=== PATIENT | male | born 1970 | race Caucasian/White ===

== ENCOUNTER 2020-10-27 15:31 | Emergency (ER) | payer BC, SELFPAY ==
[2020-10-27] VITALS (21 sets, daily range): BP systolic 66–117; BP diastolic 30–96; PULSE 61–83; RESP 12–20; TEMP 36.4; O2SAT 96–100; BMI 39.9
--- NOTE | ~2020-10-27 | CT_ITS ---
EXAMINATION: CT HEAD WITHOUT CONTRAST CLINICAL INFORMATION: Syncope with fall. Rule out fracture, bleed. COMPARISON: None TECHNIQUE: Contiguous axial imaging was performed from the skull base to vertex without intravenous administration of contrast. This CT examination was performed using dose optimization techniques as appropriate, variously including the following: *Automated exposure control *Adjustment of mA and/or kV according to patient size (this includes techniques or standardized protocols for targeted exams where dose is matched to indication/reason for exam; i.e. extremities or head) *Use of iterative reconstruction technique DLP: 881 mGy-cm FINDINGS: There is no evidence of acute intracranial hemorrhage or territorial infarction. No abnormal mass effect or midline shift is seen. Vasquez to white matter differentiation is well preserved. No extra-axial fluid collections are identified. The ventricles are normal in size. There is no abnormal attenuation within the brain parenchyma. The osseous structures and soft tissues are normal. The mastoid air cells and visualized portions of the paranasal sinuses are well aerated. CT/CT head/brain wo con IMPRESSION: No acute intracranial pathology.
--- NOTE | ~2020-10-27 | XR_ITS ---
EXAMINATION: XR PORTABLE CHEST CLINICAL INFORMATION: Chest pain, syncope COMPARISON: None. TECHNIQUE: AP portable supine view of the chest FINDINGS: Lungs are clear. No consolidation, pneumothorax, or pleural effusion. Cardiac and mediastinal contours are normal. Pulmonary vasculature is unremarkable. Osseous structures are unremarkable. XR/XR chest 1V IMPRESSION: No acute cardiopulmonary findings
--- NOTE | ~2020-10-27 | CT_ITS ---
EXAMINATION: CT ANGIOGRAM CHEST CLINICAL INFORMATION: back pain, hypotension, rule out aortic dissection COMPARISON: None TECHNIQUE: Multiple axial images were obtained through the chest after the administration of 70 mL of Omnipaque 350 intravenous contrast. Extensive vascular post-processing including two-dimensional and three-dimensional reformatted images were created and reviewed on an independent workstation. This CT examination was performed using dose optimization techniques as appropriate, variously including the following: *Automated exposure control *Adjustment of mA and/or kV according to patient size (this includes techniques or standardized protocols for targeted exams where dose is matched to indication/reason for exam; i.e. extremities or head) *Use of iterative reconstruction technique DLP: 562 mGy-cm VASCULAR FINDINGS: The thoracic aorta appears normal without dissection or aneurysm. There is motion artifact at the root of the aorta producing some double density secondary to lack of cardiac gating. Three-vessel branching pattern of the aortic arch is seen with widely patent great vessels. A small portion of the abdominal aorta is seen and appears unremarkable. The celiac SMA and bilateral renal arteries are patent. Although not carried out for evaluation of the pulmonary arteries and pulmonary veins appear unremarkable. No large central pulmonary emboli are seen. NONVASCULAR FINDINGS: The lungs are clear without infiltrates, effusions or lung masses. No mediastinal or hilar lymphadenopathy is seen. The chest wall and axilla appear unremarkable. Visualized upper abdomen is unremarkable. Degenerative changes are present in the spine. No bony destructive lesions seen. CT/CT angio chest IMPRESSION: No aortic aneurysm or dissection is seen. Evaluation of the ascending aorta is somewhat limited by motion and lack of cardiac gating.
--- NOTE | ~2020-10-27 | US_ITS ---
EXAMINATION: US RETROPERITONEAL LIMITED (RENAL ONLY) CLINICAL INFORMATION: Onset of renal failure. Concern for obstruction.. COMPARISON: None TECHNIQUE: Grayscale ultrasound and color Doppler exam of kidneys. FINDINGS: RIGHT KIDNEY: 12.6 x 5.8 x 5.8 cm (SAG x AP x TRV). The kidney is normal in size, contour, and echogenicity. Renal cortical thickness is normal. No calculi or focal parenchymal lesions. No hydronephrosis. LEFT KIDNEY: 11.9 x 6.3 x 5.5 cm (SAG x AP x TRV). The kidney is normal in size, contour, and echogenicity. Renal cortical thickness is normal. No calculi or focal parenchymal lesions. No hydronephrosis. US/US renal BI IMPRESSION: Normal ultrasound of the kidneys..
--- NOTE | 2020-10-27 16:30 | PC.NURSE ---
Pt is very pale, but alert and oriented. Pt passed out x 2 at doctors office [employer]. Pt denies any pain. pt states he just does not feel well. BP low at 61/31 with recheck 66/40. Doctor is currently at bedside. IV started in right ac with a 20 gauge. NS bolus started on a pressure bag immediately per doctors orders.
--- NOTE | 2020-10-27 16:35 | ECG_ITS ---
Test Reason : LOW BP Blood Pressure : / mmHG Vent. Rate : 070 BPM Atrial Rate : 070 BPM P-R Int : 206 ms QRS Dur : 092 ms QT Int : 468 ms P-R-T Axes : 046 045 058 degrees QTc Int : 505 ms Normal sinus rhythm Prolonged QT Abnormal ECG No previous ECGs available Referred By: Robinson Hartman Electronically Signed By:Robert Hunter
[2020-10-27] MEDS: 0.9 % Sodium Chloride 1,000 ML 999 ML IV ×3 (16:40→17:30)
--- NOTE | 2020-10-27 16:45 | PC.NURSE ---
Second iv established in anterior lower forearm near wrist with a 22 gauge insyte. blood drawn and sent to the lab. Second liter of normal saline started iv with pressure bag.
--- NOTE | 2020-10-27 16:55 | ED_ITS ---
HPI - General Adult General Chief complaint: Dizziness Stated complaint: abnormal ekg Time Seen by Provider: 10/27/20 16:18 Source: patient Mode of arrival: ambulatory Limitations: no limitations History of Present Illness HPI narrative: 50-year-old male who was sent to the emergency department by his PCP for evaluation of syncopal episodes and low blood pressure. The patient states that on Monday (5 days prior to evaluation) was work on his pool when he developed a burning sensation between his shoulder blades. He states he felt lightheaded and dizzy when into his workshop he states his vision then went lee and he passed out. He states that he crashed to the floor through a rocking chair breaking the chair. He is uncertain how long he was unconscious for. On Monday (4 days prior to evaluation) he was at a wedding. He states that he walked to the tailgate of his truck and sat down. He states that he developed a burning sensation between her shoulder blades again, his vision went lee and he slumped over and passed out. His , Toyin witness this syncopal episode and states that he was unresponsive for 5-10 seconds. He then appeared to be confused after the episode of unresponsiveness. This resolved after several minutes. The patient states that he has had several other episodes of a burning sensation between his shoulder blades, he states he feels like his shoulders are on fire, he has no chest pain, neck or jaw pain associated with this symptom. He states that he often feels lightheaded when he gets the symptom. Patient states that on Monday (3 days prior to evaluation (he had 5 episodes of brown diarrheal stool with a small amount of blood in the diarrhea. The patient does have a history of alcohol use disorder and states that he was drinking 5 beers per day but stopped approximately 3 weeks ago. He states he has also been intentionally dieting and has lost 30 lb over 1 month. The patient states that since Monday however he has had very little food to eat since he lost his appetite .The patient was seen by his PCP today, Dr. Edna Clinton and was referred to the emergency department for evaluation of hypotension and quiet heart sounds according to his . The patient states that he has a liver issue that they are trying to diagnose. He states that he has high iron in his blood and had a normal ultrasound of his liver. He does have a history of hypertension has been compliant with his medications, he takes lisinopril and hydrochlorothiazide and there has not been any changes in his medications. He also has a history of gout The patient has been fully vaccinated with the Moderna COVID-19vaccine with his last dose on 07/04/2020. He also had COVID-19 infection January 2020 Related Data Home Medications Medication Instructions Recorded Confirmed escitalopram oxalate 1 tab PO DAILY 10/27/20 10/27/20 hydrochlorothiazide 1 tab PO DAILY 10/27/20 10/27/20 lorazepam 1 tab PO Q8H PRN 10/27/20 10/27/20 nitroglycerin 1 tab SUBLINGUAL Q5M PRN 10/27/20 10/27/20 Allergies Allergy/AdvReac Type Severity Reaction Status Date / Time No Known Allergies Allergy Verified 10/27/20 16:35 Review of Systems Review of Systems: Yes all other systems are reviewed and are negative Neurologic: Reports Abnormal speech present [facility] Past Medical History [facility] Narrative: Past medical history: Gout, hypertension, being evaluated for possible hemochromatosis (high iron in his blood). Past surgical history: Patient states he has had an operation on his hand and his knee but no other surgeries. Social history: Patient is . His Toyin is here in the emergency department with him. The patient denies tobacco use. He denies drug use. He was drinking 5 Reyes Light beers per day but states he has had no alcohol to drink for 3 weeks. Medical History (Updated 10/28/20 @ 02:08 by Robinson Hartman MD) Arthritis Hypertension Social History Social History Alcohol intake: former Patient Tobacco Use Status: Never used Tobacco Use of substances other than those prescribed or required for medical reasons: No Advance Directives: No Advance Directives Information Provided: No Physical Exam Vital Signs: Vital Signs: Last Vital Signs Temp 97.6 F 10/27/20 16:08 Pulse 71 10/28/20 01:59 Resp 16 10/28/20 01:59 BP 99/60 10/28/20 01:59 Pulse Ox 100 10/28/20 01:59 Body Mass Index 39.9 Const: Other: Very pleasant and cooperative male, joking around with the staff, awake and alert, he does not appear to be in distress. HENMT: Head: Yes normal to inspection, Yes normocephalic and Yes atraumatic Ears: external ears normal General nose exam: Normal external nose present Face and sinus: Yes normal facial exam Mouth: Normal oral and palatal mucosa present Throat: Yes posterior oropharynx normal Eyes: Periorbital: periorbital findings normal Eyelids: Yes eyelids normal Conjunctivae: conjunctivae normal Sclerae: sclerae normal Corneas: corneas normal Pupils: Equal, round and reactive pupils present Direct Ophthalmoscopy: normal light reflex Neck: Neck: Yes full ROM, Yes no lymphadenopathy, Yes no meningeal signs, Yes trachea midline and Yes supple Chest: Chest palpation & inspection: normal inspection of the chest and normal palpation of entire chest wall Resp: Effort & Inspection: normal respiratory effort and able to speak in complete sentences Auscultation: clear to auscultation bilaterally Cardio: Rate: regular rate Rhythm: regular rhythm Heart sounds: S1 normal heart sound present, S2 normal heart sound present and no murmurs GI: Inspection: Yes normal to inspection Palpation (GI): Soft to palpation, nontender, no guarding and not rigid Auscultation: normal bowel sounds Rectal Exam - Male: Yes visual inspection normal, Yes normal sphincter tone, No External hemorrhoid(s) present and Yes other (No stool in the rectum, gel on the glove was strongly Hemoccult positive) : General: Yes no CVA tenderness Back/Spine/Pelvis: Back: no CVA tenderness Cervical Spine: normal cervical lordosis Thoracic/Lumbar Spine: thoracic and lumbar spine normal to inspe ction Skin: Lesions: no lesions Rashes: no rashes Wounds: no wounds Neuro: General: no meningeal signs Cranial nerves: Yes Equal, round and reactive pupils present Cognition (Neuro): normal cognition Speech: Abnormal speech present Motor exam (neuro): 5/5 motor strength present throughout Extrem: General: Yes normal to inspection and Yes full ROM Psych: Appearance: well kempt Mental Status: mental status grossly normal Speech and movement: Normal speech and movement present Affect: normal affect Attitude: cooperative Thought process: Normal thought process present Thought content: Normal thought content present Course Course Course Narrative: 50-year-old male who presents emergency department for evaluation of 2 syncopal episodes and hypotension. The patient was hypotensive here in the emergency department, he is afebrile and I do not think that he has sepsis is the cause of his hypotension. Physical examination was unremarkable except for no stool in the rectum and Hemoccult-positive gel that was on the glove. I am more concerned that there may be a cardiac cause or that this p atient may be severely anemic from GI blood loss. The patient was ordered to get normal saline IV x2 L on pressure bags to see if this improves his blood pressure. I did order a CBC, CMP, troponin, type and screen, CK, D-dimer, TSH, COVID-19, alcohol, lipase, PT/INR, PTT and iron profile. 0: There was a delay in this patient's care since it was very difficult to get blood from the patient. The patient has received 3 L of normal saline and 1 L of lactated Ringer's with only some improvement in his blood pressure. most recent blood pressure readings were 87/42 and 107/70. Patient's laboratory evaluation did reveal acute kidney injury with a BUN of 103 and a creatinine of 6.6. Patient was not anemic with an H&H of 13.5 and 37.4. Patient's high sensitive troponin was detectable but not elevated at 22.2. the patient's lactic acid was normal. The patient was experiencing back pain and is CT angiogram revealed no dissection and no evidence for pulmonary embolism. CT scan of the brain revealed no intracranial pathology. Given the patient's persistent hypotension despite fluid resuscitation , I will discuss the patient's presentation with the student services counselor. 4 : I did discuss the patient's presentation with Dr. Price and he did accept the patient into the ICU. I will repeat the patient's high sensitivity troponin, CBC and CMP at 11:20 p.m. 2342 : The the patient was seen by the nurse practitioner in the intensive care unit however we do not have an intensive care unit bed at this time. The patient's last 3 systolic blood pressures were greater than 90 and the patient appears to be stable. the patient has received normal saline times 3 L, lactated Ringer's x1 L. I ordered a 5th L of lactated Ringer's wide open. We will monitor the patient for at least 1 hour to see if his systolic blood pressures remain above 90. 0140: The patient is completed 3 L of normal saline and 2 L of lactated Ringer and the patient still remains hypertensive with a blood pressure of 73/28. At this time we do not have any intensive care unit beds therefore I will attempt distress for the patient. the patient's for into did come back elevated at 995 with a normal LDH. COVID-19 test was negative. Bilateral renal ultrasound revealed no obstructive process. 0206: I did present the patient to the intensive care unit fellow at [facility] and she did except the patient is a ED to ICU transfer. The patient's recent bladder scan did reveal 250 cc fluid in his bladder. the patient be transferred by ALS ambulance seen is the ICU bed is available. Medical Decision Making Lab Data Result diagrams: 10/27/20 23:20 10/27/20 23:20 Labs: Lab Results 10/27/20 10/27/20 10/27/20 Range/Units 16:51 16:53 19:07 WBC 9.8 (4.8-10.8) X10*3/uL RBC 3.86 L (4.60-5.80) X10*6/uL Hgb 13.5 L (14.0-18.0) g/dl Hct 37.4 L (42-52) % MCV 96.9 (80-98) fL MCH 35.0 H (27.0-33.0) pg MCHC 36.1 H (31.0-36.0) g/dl RDW 12.9 (11.0-16.0) % Plt Count 180 (160-400) X10*3/uL MPV 10.0 (9.4-12.4) fL Immature Gran % (Auto) 0.6 H (0.0-0.4) % Neut % (Auto) 76.5 H (45-73) % Lymph % (Auto) 17.4 L (20-40) % Dade % (Auto) 4.7 (2-11) % Eos % (Auto) 0.4 (0-4) % Baso % (Auto) 0.4 (0-2) % Lymph # (Auto) 1.7 (1.2-4.9) X10*3/uL Dade # (Auto) 0.5 (0.1-1.2) X10*3/uL Eos # (Auto) 0.0 (0.0-0.4) X10*3/uL Baso # (Auto) 0.0 (0.0-0.2) X10*3/uL Abs Immat Gran (auto) 0.06 H (0.00-0.03) X10*3/uL Absolute Neuts (auto) 7.5 (2.0-8.3) X10*3/uL Absolute Nucleated RBC 0.000 (0.0-0.012) X10*3/uL Nucleated RBC % (auto) 0.0 (0.0-0.2) /100WBC PT (9.9-13.0) SEC INR (0.9-1.1) APTT (24.1-38.0) SEC D-Dimer NG/ML Sodium (135-145) mmol/L Potassium (3.3-5.1) mmol/L Chloride (96-108) mmol/L Carbon Dioxide (22-29) mmol/L Anion Gap (12-20) BUN (9-16) mg/dL Creatinine (0.5-1.4) mg/dL Estim Creat Clear Calc Estimated GFR Random Glucose (60-115) mg/dL Lactic Acid (0.5-2.0) mmol/L Calcium (8.4-10.2) mg/dL Total Bilirubin (0.0-1.0) mg/dL AST (5-37) U/L ALT (0-40) U/L Alkaline Phosphatase (39-117) U/L Troponin I High Sens (<3.5-35.0) ng/L Total Protein (6.5-8.0) g/dL Albumin (3.5-5.0) g/dL Ethyl Alcohol mg/dL COVID-19 ([facility]) Negative (Negative) COVID-19 Clin Com See Note Blood Type A Positive Antibody Screen NEGATIVE 10/27/20 10/27/20 10/27/20 Range/Units 20:24 20:35 20:35 WBC (4.8-10.8) X10*3/uL RBC (4.60-5.80) X10*6/uL Hgb (14.0-18.0) g/dl Hct (42-52) % MCV (80-98) fL MCH (27.0-33.0) pg MCHC (31.0-36.0) g/dl RDW (11.0-16.0) % Plt Count (160-400) X10*3/uL MPV (9.4-12.4) fL Immature Gran % (Auto) (0.0-0.4) % Neut % (Auto) (45-73) % Lymph % (Auto) (20-40) % Dade % (Auto) (2-11) % Eos % (Auto) (0-4) % Baso % (Auto) (0-2) % Lymph # (Auto) (1.2-4.9) X10*3/uL Dade # (Auto) (0.1-1.2) X10*3/uL Eos # (Auto) (0.0-0.4) X10*3/uL Baso # (Auto) (0.0-0.2) X10*3/uL Abs Immat Gran (auto) (0.00-0.03) X10*3/uL Absolute Neuts (auto) (2.0-8.3) X10*3/uL Absolute Nucleated RBC (0.0-0.012) X10*3/uL Nucleated RBC % (auto) (0.0-0.2) /100WBC PT 11.6 (9.9-13.0) SEC INR 1.0 (0.9-1.1) APTT 36.7 (24.1-38.0) SEC D-Dimer < 200 NG/ML Sodium 131 L (135-145) mmol/L Potassium 3.5 (3.3-5.1) mmol/L Chloride 89 L (96-108) mmol/L Carbon Dioxide 25 (22-29) mmol/L Anion Gap 21 H (12-20) BUN 103 H* (9-16) mg/dL Creatinine 6.64 H* (0.5-1.4) mg/dL Estim Creat Clear Calc 17.5 Estimated GFR 9 Random Glucose 81 (60-115) mg/dL Lactic Acid 1.4 (0.5-2.0) mmol/L Calcium 8.4 (8.4-10.2) mg/dL Total Bilirubin 0.7 (0.0-1.0) mg/dL AST 58 H (5-37) U/L ALT 36 (0-40) U/L Alkaline Phosphatase 42 (39-117) U/L Troponin I High Sens (<3.5-35.0) ng/L Total Protein 5.5 L (6.5-8.0) g/dL Albumin 3.2 L (3.5-5.0) g/dL Ethyl Alcohol mg/dL COVID-19 ([facility]) (Negative) COVID-19 [facility] Blood Type Antibody Screen 10/27/20 10/27/20 Range/Units 20:35 20:35 WBC (4.8-10.8) X10*3/uL RBC (4.60-5.80) X10*6/uL Hgb (14.0-18.0) g/dl Hct (42-52) % MCV (80-98) fL MCH (27.0-33.0) pg MCHC (31.0-36.0) g/dl RDW (11.0-16.0) % Plt Count (160-400) X10*3/uL MPV (9.4-12.4) fL Immature Gran % (Auto) (0.0-0.4) % Neut % (Auto) (45-73) % Lymph % (Auto) (20-40) % Dade % (Auto) (2-11) % Eos % (Auto) (0-4) % Baso % (Auto) (0-2) % Lymph # (Auto) (1.2-4.9) X10*3/uL Dade # (Auto) (0.1-1.2) X10*3/uL Eos # (Auto) (0.0-0.4) X10*3/uL Baso # (Auto) (0.0-0.2) X10*3/uL Abs Immat Gran (auto) (0.00-0.03) X10*3/uL Absolute Neuts (auto) (2.0-8.3) X10*3/uL Absolute Nucleated RBC (0.0-0.012) X10*3/uL Nucleated RBC % (auto) (0.0-0.2) /100WBC PT (9.9-13.0) SEC INR (0.9-1.1) APTT (24.1-38.0) SEC D-Dimer NG/ML Sodium (135-145) mmol/L Potassium (3.3-5.1) mmol/L Chloride (96-108) mmol/L Carbon Dioxide (22-29) mmol/L Anion Gap (12-20) BUN (9-16) mg/dL Creatinine (0.5-1.4) mg/dL Estim Creat Clear Calc Estimated GFR Random Glucose (60-115) mg/dL Lactic Acid (0.5-2.0) mmol/L Calcium (8.4-10.2) mg/dL Total Bilirubin (0.0-1.0) mg/dL AST (5-37) U/L ALT (0-40) U/L Alkaline Phosphatase (39-117) U/L Troponin I High Sens 22.2 (<3.5-35.0) ng/L Total Protein (6.5-8.0) g/dL Albumin (3.5-5.0) g/dL Ethyl Alcohol < 10 mg/dL COVID-19 ([facility]) (Negative) COVID-19 Clin Com Blood Type Antibody Screen ECG Data Attestation: I personally reviewed and interpreted this ECG as follows: Interpretation: Sinus rhythm with a rate of 70, first-degree AV block with NC interval of 206 milliseconds, normal QRS duration but prolonged QTC interval of 505 milliseconds, inverted T-waves in lead V1 and V3, no significant ST segment elevation or depression, no PACs, no PVCs, no old EKG for comparison, no evidence for STEMI. Critical Care Time Critical Care Time Critical Care Time: Yes Total Critical Care Time: 80 Attestation: Critical Care: The patient was critically ill with a high probability of imminent or life threatening deterioration. I spent greater than 30 minutes of discontinuous time evaluating the patient,delivering critical care at the bedside, discussing and evaluating pertinent data with consultants. Critical care time does not include time spent performing separately billable procedures or teaching. Total time spent performing critical care was 80 erich leonel. Discharge Plan Discharge Clinical Impression: Acute kidney injury, Acute dehydration, Syncope, Acute hypotension Patient Disposition: [facility] Transfer Details: [facility], ED to intensive care unit transfer
[2020-10-27 17:00] LABS: MANUAL DIFF FLAG NO
[2020-10-27 17:03] LABS: Basophils Percent Auto 0.4 % (0-2); Eosinophils Percent Auto 0.4 % (0-4); Hematocrit 37.4 % (42-52); Hemoglobin 13.5 g/dl (14.0-18.0); Imm Gran Abs Auto 0.06 X10*3/uL (0.00-0.03); Imm Gran Pct Auto 0.6 % (0.0-0.4); Lymphocytes Absolute Auto 1.7 X10*3/uL (1.2-4.9); Lymphocytes Percent Auto 17.4 % (20-40); Mean Corpuscular HGB Conc 36.1 g/dl (31.0-36.0); Mean Corpuscular Volume 96.9 fL (80-98); Monocytes Absolute Auto 0.5 X10*3/uL (0.1-1.2); Monocytes Percent Auto 4.7 % (2-11); Neutrophils Absolute Auto 7.5 X10*3/uL (2.0-8.3); Neutrophils Percent Auto 76.5 % (45-73); Platelet Count 180 X10*3/uL (160-400); Red Blood Count 3.86 X10*6/uL (4.60-5.80); Red Cell Distribution Width 12.9 % (11.0-16.0); White Blood Count 9.8 X10*3/uL (4.8-10.8)
--- NOTE | 2020-10-27 17:20 | PC.NURSE ---
Patient face has more color to it, cheeks are raina. Pt states he is feeling better
[2020-10-27 18:23] LABS: COVID-19 Test Negative (Negative)
--- NOTE | 2020-10-27 18:54 | PC.NURSE ---
Phlebotomy as bedside for blood work as ED staff has been unable to draw patient.
--- NOTE | 2020-10-27 19:50 | PHA.MEDREC ---
Pharmacy Consult ? Medication Reconciliation Pharmacy has completed the medication reconciliation. Pt states that pcp told him to stop nifedpine, and meloxicam
[2020-10-27] MEDS: Lactated Ringers 1,000 ML 1000 ML IV (19:57)
--- NOTE | 2020-10-27 20:06 | PC.NURSE ---
Pt requesting to use the bathroom, assisted onto the commode but unable to void on the commode. Pt requesting to use the bathroom, assisted into a wheelchair and to the bathroom by endoscopy specialty technician. Pt denies any weakness, SOB, nausea, fatigue with exertion. Pt returned to bed and was resting in POC. Pt reporting some lower back pain. Pt found to be hypotensive by this RN @ 70/30. ED MD notified. Verbal order for LR bolus, 1 li, wide open. LR infusing. Pt remains CAOx4, speaking full sentences, despite hypotension. Plan for chest Ct, awaiting lab results. Continue to monitor.
[2020-10-27] MEDS: Lactated Ringers 1,000 ML 125 ML IVCONT (20:12)
--- NOTE | 2020-10-27 20:25 | PC.NURSE ---
coordinator of health services calling lab for pending CMP. Per lab, CMP not obtained by phlebotomy with other bloodwork @ 1900. This RN obtaining CMP and sending for analysis.
--- NOTE | 2020-10-27 20:36 | PC.NURSE ---
Repeat CMP obtained and sent by this RN. This RN caling lab due to mutiple pending lab work noted in orders but not showing in phleb status board. Lab to fix problem and phleb to redraw pt. Phleb at bedside at this time.
[2020-10-27 20:57] LABS: Prothrombin Time 11.6 SEC (9.9-13.0)
[2020-10-27 20:59] LABS: Partial Thromboplastin Time 36.7 SEC (24.1-38.0)
[2020-10-27 21:01] LABS: D Dimer < 200 NG/ML
[2020-10-27 21:02] LABS: Alanine Aminotransferase 36 U/L (0-40); Albumin Level 3.2 g/dL (3.5-5.0); Alkaline Phosphatase 42 U/L (39-117); Anion Gap 21 (12-20); Aspartate Amino Transferase 58 U/L (5-37); Bilirubin Total 0.7 mg/dL (0.0-1.0); Blood Urea Nitrogen 103 mg/dL (9-16); Calcium 8.4 mg/dL (8.4-10.2); Carbon Dioxide 25 mmol/L (22-29); Chloride 89 mmol/L (96-108); Creatinine Clr Calc Pharmacy 17.5; Estimated Glomerular Filt Rate 9; Glucose Random 81 mg/dL (60-115); Potassium 3.5 mmol/L (3.3-5.1); Sodium 131 mmol/L (135-145); Total Protein 5.5 g/dL (6.5-8.0)
[2020-10-27] MEDS: iohexoL 350 MG/ML 100 ML INFUS..BTL IV (21:02)
--- NOTE | 2020-10-27 21:02 | PC.NURSE ---
Pt returns from CT on hospital bed at this time.
[2020-10-27 21:06] LABS: Lactic Acid 1.4 mmol/L (0.5-2.0)
[2020-10-27 21:09] LABS: Ethanol < 10 mg/dL
[2020-10-27 21:16] LABS: Troponin-I High Sensitivity 22.2 ng/L (<3.5-35.0)
[2020-10-27 21:17] LABS: Lipase 70 U/L (8-78)
[2020-10-27 21:22] LABS: TSH reflex Free T4 0.91 uIU/mL (0.32-4.0)
[2020-10-27 21:36] LABS: Iron 56 mcg/dL (45-160); Percent Iron Saturation 21 % (15-50); Total Iron Binding Capacity 268 mcg/dL (228-428); Unsaturated Iron Binding 212 ug/dL
--- NOTE | 2020-10-27 21:38 | PC.NURSE ---
U/S at bedside. Pt aware of pending UA. Pt to attempt urine sample when finished with U/S.
[2020-10-27 22:20] LABS: Lactate Dehydrogenase 143 U/L (118-273)
[2020-10-27 22:30] LABS: Glucose Urine UA NEG (NEG); Leukocyte Esterase Urine NEG (NEG); Nitrite Urine NEG (NEG); Urine Blood TRACE (NEG); Urine Ketones NEG (NEG); Urine Protein TRACE MG/DL (NEG-TRACE)
[2020-10-27 22:31] LABS: Appearance Urine CLEAR; Color Urine YELLOW
[2020-10-27 22:36] LABS: WBC Urine 0 /HPF (0-4)
[2020-10-27 22:37] LABS: Squamous Epithelial Cell Urine 1+ /LPF
[2020-10-27 22:40] LABS: Ferritin 995 ng/mL (20-250)
[2020-10-27 23:29] LABS: MANUAL DIFF FLAG NO
[2020-10-27 23:32] LABS: Basophils Absolute Auto 0.1 X10*3/uL (0.0-0.2); Basophils Percent Auto 0.6 % (0-2); Eosinophils Absolute Auto 0.1 X10*3/uL (0.0-0.4); Eosinophils Percent Auto 0.9 % (0-4); Hematocrit 33.8 % (42-52); Hemoglobin 12.2 g/dl (14.0-18.0); Imm Gran Abs Auto 0.04 X10*3/uL (0.00-0.03); Imm Gran Pct Auto 0.5 % (0.0-0.4); Lymphocytes Absolute Auto 2.1 X10*3/uL (1.2-4.9); Lymphocytes Percent Auto 26.3 % (20-40); Mean Corpuscular HGB Conc 36.1 g/dl (31.0-36.0); Mean Corpuscular Hemoglobin 35.2 pg (27.0-33.0); Mean Corpuscular Volume 97.4 fL (80-98); Mean Platelet Volume 9.3 fL (9.4-12.4); Monocytes Absolute Auto 0.4 X10*3/uL (0.1-1.2); Monocytes Percent Auto 5.2 % (2-11); Neutrophils Absolute Auto 5.2 X10*3/uL (2.0-8.3); Neutrophils Percent Auto 66.5 % (45-73); Platelet Count 150 X10*3/uL (160-400); Red Blood Count 3.47 X10*6/uL (4.60-5.80); Red Cell Distribution Width 12.9 % (11.0-16.0); White Blood Count 7.8 X10*3/uL (4.8-10.8)
[2020-10-27] MEDS: Lactated Ringers 500 ML IV (23:37)
[2020-10-27] MEDS: 0.9 % Sodium Chloride 1,000 ML 125 ML IVCONT (23:38)
--- NOTE | 2020-10-27 23:38 | PC.NURSE ---
Addendum entered by Aretha Kelley 10/28/20 01:28: Plan to transfer pt to an IMC bed if able to maintain BP > 90 as ICU has no beds available. Original Note: Per ER MD, to bolus with 500 ml of LR and hang NS @ 125/hr. Per ER MD, to hold verbal order for Albumin from ICU TNT LINE SUPERVISOR.
[2020-10-28 00:03] LABS: Troponin-I High Sensitivity 27.4 ng/L (<3.5-35.0)
[2020-10-28 00:04] LABS: Alanine Aminotransferase 37 U/L (0-40); Albumin Level 3.4 g/dL (3.5-5.0); Alkaline Phosphatase 45 U/L (39-117); Anion Gap 18 (12-20); Aspartate Amino Transferase 58 U/L (5-37); Bilirubin Total 0.7 mg/dL (0.0-1.0); Blood Urea Nitrogen 100 mg/dL (9-16); Calcium 8.6 mg/dL (8.4-10.2); Carbon Dioxide 28 mmol/L (22-29); Chloride 89 mmol/L (96-108); Creatinine Clr Calc Pharmacy 19.1; Estimated Glomerular Filt Rate 10; Glucose Random 99 mg/dL (60-115); Potassium 3.4 mmol/L (3.3-5.1); Sodium 132 mmol/L (135-145); Total Protein 5.7 g/dL (6.5-8.0)
[2020-10-28 00:58] LABS: Alanine Aminotransferase 36 U/L (0-40); Albumin Level 3.2 g/dL (3.5-5.0); Alkaline Phosphatase 41 U/L (39-117); Aspartate Amino Transferase 58 U/L (5-37); Bilirubin Direct 0.4 mg/dL (0.0-0.5); Bilirubin Total 0.7 mg/dL (0.0-1.0); Total Protein 5.5 g/dL (6.5-8.0)
[2020-10-28 01:19] VITALS: BP 73/28; PULSE 70; RESP 21; O2SAT 100
--- NOTE | 2020-10-28 01:26 | PC.NURSE ---
MD notified of hypotension. Plan to transfer pt out to an ICU as [place] [facility] MD advising this RN to hold Albumin despite order from ICU SCROLL SHEAR OPERATOR. Continue to monitor.
--- NOTE | 2020-10-28 01:38 | PC.NURSE ---
Lab unable to add PALM onto previous urine specimen. Pt unable to void at this time.
--- NOTE | 2020-10-28 01:42 | PC.NURSE ---
MD at bedside discussing plan of care to transfer pt out to another ICU. Bladder scan: 241 ml. MD aware.
[2020-10-28 01:43] VITALS: BP 87/52; PULSE 66; RESP 16
[2020-10-28 01:59] VITALS: BP 99/60; PULSE 71; RESP 16; O2SAT 100
[2020-10-28 02:30] VITALS: BP 101/64; PULSE 66; RESP 16
--- NOTE | 2020-10-28 02:30 | PC.NURSE ---
PALM obtained and sent. Pt aware of plan to transfer to [facility] ICU.
[2020-10-28 02:49] LABS: Amphetamine Screen Urine Not Detected (Not Detect); Barbiturates, Urine Not Detected (Not Detect); Benzodiazepines Screen Urine Not Detected (Not Detect); Cannabinoid Screen Urine Not Detected (Not Detect); Cocaine Screen Urine Not Detected (Not Detect); Opiate Screen Urine Not Detected (Not Detect); Phencyclidine Screen Urine Not Detected (Not Detect)
--- NOTE | 2020-10-28 03:31 | PC.NURSE ---
Report given to THERMO PROCESSOR. EMS at bedside for transport to [facility].
== END 2020-10-28 03:35 | disposition short-term general hospital (02) ==
LOC: HO.ED 22:07 → HO.EDOVER 10-28 02:10
PROVIDERS: Registered Nurse Community Health; Emergency Provider Emergency Medicine Emergency Medical Services; PCP Internal Medicine
DX: N17.9 Acute kidney failure, unspecified (principal); R55 Syncope and collapse; E86.0 Dehydration; I95.9 Hypotension, unspecified; Z20.822 Contact with and (suspected) exposure to COVID-19
CPT/HCPCS: 36415; 70450; 71045; 71275; 76775; 80053; 80076; 80307; 81001; 82077; 82248; 82550; 82728; 83540; 83605; 83615; 83690; 84443; 84484; 85025; 85379; 85610; 85730; 86850; 86900; 86901; 87040; 87635; 93005; 96360; 96361; 99285; 99291; 99292; Q9967

== ENCOUNTER 2024-09-01 12:12 | Emergency (ER) | payer BC, SELFPAY ==
--- NOTE | ~2024-09-01 | CT_ITS ---
CLINICAL HISTORY: TRAUMA CT head without contrast Comparison: None Findings: No intra-axial mass, midline shift, hydrocephalus, or acute hemorrhage. Mild diffuse cerebral volume loss. Mild degree of patchy low-density within the periventricular and subcortical white matter. There is no sinus or mastoid fluid. The orbits are within normal limits. There is no acute fracture. IMPRESSION: 1. No acute intracranial findings. This document has been electronically signed by: Jesus Valerio MD on 09/01/2024 14:24:56
--- NOTE | ~2024-09-01 | CT_ITS ---
CLINICAL HISTORY: ELEVATED lft CT abdomen and pelvis with contrast Comparison: CT - CT ABDOMEN PELVIS W IV CON - 09/01/24 15:46 EDT Findings: No consolidation or pleural effusion. The liver measures 22 cm in length. There is no focal liver lesion. The spleen, pancreas, adrenal glands and kidneys are unremarkable. There are no calcified gallstones. There is a small amount of ascites. There are mildly enlarged lymph nodes within the retroperitoneum, bilateral iliac chains and bilateral pelvic sidewalls. No bowel obstruction, pneumoperitoneum, or pneumatosis. No bowel obstruction. Unremarkable urinary bladder and prostate gland. Small left inguinal hernia containing fat. Normal appendix. There is no acute displaced fracture. There is edema of the soft tissues. IMPRESSION: 1. Mild hepatomegaly. 2. There is a small amount of ascites. 3. There is edema of the soft tissues. 4. Mild lymphadenopathy within the retroperitoneum, bilateral iliac chains and bilateral pelvic sidewalls. This document has been electronically signed by: Roseann Gonzalez MD on 09/01/2024 17:04:28
--- NOTE | ~2024-09-01 | CT_ITS ---
CLINICAL HISTORY: TRAUMA CT cervical spine without contrast Comparison: None Findings: Examination degraded by motion artifact. Normal vertebral body alignment. Multilevel disc space narrowing and endplate osteophyte formation, as well as facet hypertrophy. No acute fractures or dislocations. No acute findings on limited view of the intracranial contents. No cervical fluid collections or masses. No consolidation or effusion at the lung apices. IMPRESSION: No acute findings. This document has been electronically signed by: Jesus Valerio MD on 09/01/2024 14:23:24
--- NOTE | ~2024-09-01 | XR_ITS ---
CLINICAL HISTORY: [facility] PAIN 1 view chest x-ray Comparison: None Findings: No consolidation or effusion. Heart size is normal. No acute fracture. IMPRESSION: 1. No acute findings. This document has been electronically signed by: Jesus Valerio MD on 09/01/2024 13:34:13
[2024-09-01 12:30] VITALS: BP 128/68; BP 136/86; PULSE 82; PULSE 88; RESP 18; TEMP 36.9; O2SAT 98; O2SAT 99; BMI 44.4
--- NOTE | 2024-09-01 12:46 | ECG_ITS ---
Test Reason : fall Blood Pressure : */* mmHG Vent. Rate : 82 BPM Atrial Rate : 82 BPM P-R Int : 186 ms QRS Dur : 90 ms QT Int : 430 ms P-R-T Axes : 74 5 24 degrees QTcB Int : 502 ms Normal sinus rhythm Low voltage QRS Cannot rule out Anterior infarct , age undetermined Prolonged QT Abnormal ECG When compared with ECG of 27-Oct-2020 16:36, Minimal criteria for Anterior infarct are now Present Referred By: Evens Hernandez Electronically Signed By: Robert Hunter
--- NOTE | 2024-09-01 12:47 | ED_ITS ---
HPI - Fall General Chief Complaint: Fall Stated Complaint: FALL,HIT HEAD,-LOC,-THINNER,+CCOLLAR PER EMS Time Seen by Provider: 09/01/24 12:20 Mode of arrival: EMS Limitations: no limitations History of Present Illness HPI Narrative: THIS IS A 54 YEARS OLD MALE PRESENTED TO THE EMERGENCY DEPARTMENT AFTER A FALL HE STATED HE WAS WALKING HE LEG GAVE UP AND FELL TO THE GROUND AND HIT HIS HEAD NO SYNCOPE IN HE DOES HAVE A CHRONIC KNEE PAIN. NO CHEST PAIN NO SHORTNESS OF BREATH MD complaint: fall Onset (ago): hour(s) (1) Fall from: standing Fall witnessed: no Place fall occurred: street Loss of consciousness: none Prolonged down time: no Symptoms prior to fall: none Context: tripped/slipped Quality: burning and dull Related Data Home Medications ?Medication ?Instructions ?Recorded ?Confirmed escitalopram oxalate 10 mg tablet 1 tab PO DAILY 10/27/20 10/27/20 hydrochlorothiazide 25 mg tablet 1 tab PO DAILY 10/27/20 10/27/20 lorazepam 0.5 mg tablet 1 tab PO Q8H PRN Chest Pain 10/27/20 10/27/20 nitroglycerin 0.3 mg sublingual 1 tab sublingual Q5M PRN Chest Pain 10/27/20 10/27/20 tablet Previous Rx's ?Medication ?Instructions ?Recorded acetaminophen 300 mg-codeine 30 mg 1 tab PO Q6H PRN pain #10 tabs 09/01/24 tablet Allergies Allergy/AdvReac Type Severity Reaction Status Date / Time Penicillins Allergy Anaphylaxis Verified 09/01/24 12:35 Review of Systems 2 Constitutional: Constitutional: Reports no additional constitutional complaints ENT: Reports system reviewed and no additional complaints, except as documented Cardiovascular: Cardiovascular: Reports no additional cardiovascular complaints [facility] Past Medical History Attestation statement: The following information was validated with the patient. [facility] Narrative: CHRONIC KNEE PAIN, HYPERTENSION Medical History Arthritis Hypertension Social History Social History Alcohol intake: former Patient Tobacco Use Status: Never used Tobacco Physical Exam 2 Vital Signs: Vital Signs: Last Vital Signs Temp 98.3 F 09/01/24 17:46 Pulse 88 09/01/24 17:46 Resp 16 09/01/24 17:46 BP 154/94 H 09/01/24 17:46 Pulse Ox 99 09/01/24 17:46 O2 Del Method Room Air 09/01/24 17:46 BMI result Body Mass Index 44.4 HE LOOKS WELL NOT TOXIC APPEARING HE IS COMFORTABLE IN THE STRETCHER Const: General: cooperative Limitations: no limitations HEENT: Other: HEMATOMA IN THE OCCIPITAL AREA NOTED Ears: hearing grossly normal bilaterally General nose exam: Normal external nose present Face and sinus: Yes normal facial exam Mouth: Normal oral and palatal mucosa present Throat: Yes posterior oropharynx normal Neck: Neck: Yes normal visual inspection and Yes full ROM Chest: Chest palpation & inspection: normal inspection of the chest Resp: Effort & Inspection: normal respiratory effort Auscultation: clear to auscultation bilaterally Cardio: Jugular venous distension: no JVD Rate: regular rate Rhythm: r egular rhythm GI: Inspection: Yes normal to inspection Palpation (GI): Soft to palpation, not firm and nontender Skin: General skin exam: no rashes or lesions noted and elasticity normal L esions: no lesions Rashes: no rashes Course Reevaluation(s) Reevaluation #1: Patient liver tests noted patient stated that he had possible hemochromatosis, patient declined admission, also anemia noted refused rectal examination Time: 15:43 Reevaluation #2: signed out to Dr Minnie conroy pending Time: 16:27 Reevaluation #3: I assumed care of this patient from my colleague, Dr. Hernandez at 16:27 hours. Patient presented with a fall secondary to his legs giving out on him, he did have a head strike with no loss of consciousness. Patient has a history of hemochromatosis but is not being followed by a PCP or low emission automobile designer. He had negative CT scan of the head and neck. Patient's laboratory evaluation did reveal an elevated bilirubin of 4.9 and an elevated ferritin of 1115. LDH was normal. CT scan of the abdomen pelvis did reveal mild hepatomegaly and adenopathy. I did discuss these findings with the patient and I am concerned that he is storing iron in his liver and this could lead to liver failure. Patient was advised to follow up with his PCP or with our on-call low emission automobile designer to get further treatment for his hemochromatosis. Patient was discharged home with printed and verbal instructions Medications Administered Discontinued Medications Generic Name Dose Route Start Last Admin Trade Name Freq PRN Reason Stop Dose Admin Sodium Chloride 1,000 mls @ 999 mls/hr 05/18/25 15:00 09/01/24 16:03 Ns IVCONT 09/01/24 16:00 Infused .Q1H1M LUZ Infusion Iohexol 100 ml 09/01/24 15:47 09/01/24 15:47 Iohexol 350 Mg/Ml 100 Ml Infus..Btl IV 09/01/24 15:48 100 ml ONCE ONE Administration Medical Decision Making Medical Decision Making [facility] Narrative: PATIENT IS HERE AFTER FALL COMPLAINING OF HEADACHE WE WILL OBTAIN IMAGING OF THE HEAD ALSO WILL CHECK BLOOD WORK EKG Lab Data 09/01/24 13:36 09/01/24 13:36 Labs: Lab Results 09/01/24 09/01/24 Range/Units 13:36 13:38 WBC 12.3 H (4.8-10.8) X10*3/uL RBC 2.83 L (4.60-5.80) X10*6/uL Hgb 9.2 L (14.0-18.0) g/dl Hct 27.3 L (42.0-52.0) % MCV 96.5 (80.0-98.0) fL MCH 32.5 (27.0-33.0) pg MCHC 33.6 (31.0-36.0) g/dl RDW 16.6 H (11.0-16.0) % Plt Count 192 (160-400) X10*3/uL MPV 9.9 (9.4-12.4) fL Immature Gran % (Auto) 0.7 H (0.0-0.4) % Neut % (Auto) 69.2 (45-73) % Lymph % (Auto) 20.7 (20-40) % [place] % (Auto) 7.9 (2-11) % Eos % (Auto) 0.7 (0-4) % Baso % (Auto) 0.8 (0-2) % Lymph # (Auto) 2.5 (1.2-4.9) X10*3/uL [place] # (Auto) 1.0 (0.1-1.2) X10*3/uL Eos # (Auto) 0.1 (0.0-0.4) X10*3/uL Baso # (Auto) 0.1 (0.0-0.2) X10*3/uL Abs Immat Gran (auto) 0.09 H (0.00-0.03) X10*3/uL Absolute Neuts (auto) 8.5 H (2.0-8.3) x10*3/uL Absolute Nucleated RBC 0.000 (0.0-0.012) X10*3/uL Nucleated RBC % (auto) 0.0 (0.0-0.2) /100WBC Sodium 137 (135-145) mmol/L Potassium 3.4 (3.3-5.1) mmol/L Chloride 97 (96-108) mmol/L Carbon Dioxide 28 (22-29) mmol/L Anion Gap 15 (12-20) BUN 5 L (9-16) mg/dL Creatinine 0.52 (0.5-1.4) mg/dL Estim Creat Clear Calc 227.8 Estimated GFR > 60 Random Glucose 101 (60-115) mg/dL Calcium 8.6 (8.4-10.2) mg/dL Ferritin 1115 H (20-250) ng/mL Total Bilirubin 4.9 H (0.0-1.0) mg/dL AST 184 H (5-37) U/L ALT 25 (0-40) U/L Alkaline Phosphatase 276 H (39-117) U/L Troponin I High Sens 6.0 (<3.5-35.0) ng/L Total Protein 7.1 (6.5-8.0) g/dL Albumin 2.7 L (3.5-5.0) g/dL Urine Color Dark Yellow Urine Appearance Clear Urine pH 6.5 (5.0-9.0) Ur Specific [place] 1.010 (1.005-1.025) Urine Protein Negative (Neg-Trace) mg/dL Urine Glucose (UA) Negative (Negative) mg/dL Urine Ketones Negative (Negative) mg/dL Urine Blood Negative (Negative) Urine Nitrite Negative (Negative) Ur Leukocyte Esterase Negative (Negative) Urine Opiates Screen Not Detected (Not Detect) Ur Buprenorphine Scrn Not Detected (Not Detect) ng/mL Ur Oxycodone Screen Not Detected (Not Detect) ng/mL Urine Methadone Screen Not Detected (Not Detect) ng/mL Urine Fentanyl Screen Not Detected (Not Detect) Ur Barbiturates Screen Not Detected (Not Detect) Ur Phencyclidine Scrn Not Detected (Not Detect) Ur Amphetamines Screen Not Detected (Not Detect) U Benzodiazepines Scrn Not Detected (Not Detect) Urine Cocaine Screen Not Detected (Not Detect) U Marijuana (THC) Screen Not Detected (Not Detect) Radiology Impression Discussion of test interpretation with radiology: I have reviewed the radiologist's reading. Radiologist Impression: CT abdomen and pelvis with contrast Comparison: CT - CT ABDOMEN PELVIS W IV CON - 09/01/24 15:46 EDT Findings: No consolidation or pleural effusion. The liver measures 22 cm in length. There is no focal liver lesion. The spleen, pancreas, adrenal glands and kidneys are unremarkable. There are no calcified gallstones. There is a small amount of ascites. There are mildly enlarged lymph nodes within the retroperitoneum, bilateral iliac chains and bilateral pelvic sidewalls. No bowel obstruction, pneumoperitoneum, or pneumatosis. No bowel obstruction. Unremarkable urinary bladder and prostate gland. Small left inguinal hernia containing fat. Normal appendix. There is no acute displaced fracture. There is edema of the soft tissues. IMPRESSION: 1. Mild hepatomegaly. 2. There is a small amount of ascites. 3. There is edema of the soft tissues. 4. Mild lymphadenopathy within the retroperitoneum, bilateral iliac chains and bilateral pelvic sidewalls. This document has been electronically signed by: Roseann Gonzalez MD on 09/01/2024 17:04:28 Discharge Plan Discharge Clinical Impression: Fall, Elevated LFTs, Anemia, Head injury Patient Disposition: Home, Self-Care Instructions: Head Injury (ED) Additional Instructions: The CT scan of your head and neck did not reveal any broken bones or bleeding in your brain. The CT scan of your abdomen and pelvis with IV contrast did reveal a mildly enlarged liver, small amount of fluid in your belly, small amount of fluid in the soft tissues of your abdominal wall and mild swollen lymph nodes. These findings may be caused by your high iron in your blood, you may be storing iron in your liver and eventually this can cause liver failure so it is very important that you get follow-up with your primary care doctor. You can also follow-up with our GI doctor to see if they can follow you for this condition (hemochromatosis). Dr. Hernandez added a ferritin (blood iron study) and LDH (liver tests) to your blood work. If this comes back today I will text you the result. Take Tylenol with codeine 3., 1 or 2 pills every 6 hours as needed for headache/pain. Follow-up with your primary care doctor and/or our GI doctor for further treatment Please return to the emergency department if your symptoms get worse or if you develop any symptoms that are concerning to you. Please see the return to work note Prescriptions: New acetaminophen-codeine 300-30 mg tablet 1 tab PO Q6H PRN (Reason: pain) Qty: 10 0RF No Action hydrochlorothiazide 25 mg tablet 1 tab PO DAILY escitalopram oxalate 10 mg tablet 1 tab PO DAILY nitroglycerin 0.3 mg tablet, sublingual 1 tab sublingual Q5M PRN (Reason: Chest Pain) Rx Instructions: max 3 doses lorazepam 0.5 mg tablet 1 tab PO Q8H PRN (Reason: Chest Pain) Rx Instructions: max 3 doses Stand Alone Forms: Work/School Release Interventions: ED Discharge Assessment Last Done: 09/01/24 17:46 Discharge Date/Time: 09/01/24 17:47 Print Language: Afghan
[2024-09-01 13:44] LABS: MANUAL DIFF FLAG NO
[2024-09-01 13:45] LABS: Appearance Urine Clear; Color Urine Dark Yellow; Glucose Urine UA Negative (Negative); Leukocyte Esterase Urine Negative (Negative); Nitrite Urine Negative (Negative); PH 6.5 (5.0-9.0); Urine Blood Negative (Negative); Urine Ketones Negative (Negative); Urine Protein Negative (Neg-Trace)
[2024-09-01 13:49] LABS: Basophils Absolute Auto 0.1 X10*3/uL (0.0-0.2); Basophils Percent Auto 0.8 % (0-2); Eosinophils Absolute Auto 0.1 X10*3/uL (0.0-0.4); Eosinophils Percent Auto 0.7 % (0-4); Hematocrit 27.3 % (42.0-52.0); Imm Gran Abs Auto 0.09 X10*3/uL (0.00-0.03); Imm Gran Pct Auto 0.7 % (0.0-0.4); Lymphocytes Absolute Auto 2.5 X10*3/uL (1.2-4.9); Lymphocytes Percent Auto 20.7 % (20-40); Mean Corpuscular Volume 96.5 fL (80.0-98.0); Mean Platelet Volume 9.9 fL (9.4-12.4); Monocytes Percent Auto 7.9 % (2-11); Neutrophils Absolute Auto 8.5 x10*3/uL (2.0-8.3); Neutrophils Percent Auto 69.2 % (45-73); Platelet Count 192 X10*3/uL (160-400); Red Blood Count 2.83 X10*6/uL (4.60-5.80); Red Cell Distribution Width 16.6 % (11.0-16.0); SCAN SMEAR FLAG 1; White Blood Count 12.3 X10*3/uL (4.8-10.8)
[2024-09-01 13:56] LABS: Hemoglobin 9.2 g/dl (14.0-18.0); Mean Corpuscular HGB Conc 33.6 g/dl (31.0-36.0); Mean Corpuscular Hemoglobin 32.5 pg (27.0-33.0)
[2024-09-01 13:57] LABS: Amphetamine Screen Urine Not Detected (Not Detect); Barbiturates, Urine Not Detected (Not Detect); Benzodiazepines Screen Urine Not Detected (Not Detect); Buprenorphine Scr Not Detected (Not Detect); Cannabinoid Screen Urine Not Detected (Not Detect); Cocaine Screen Urine Not Detected (Not Detect); Fentanyl, urine Not Detected (Not Detect); Methadone Screen, Urine Not Detected (Not Detect); Opiate Screen Urine Not Detected (Not Detect); Oxycodone Screen Urine Not Detected (Not Detect); Phencyclidine Screen Urine Not Detected (Not Detect)
[2024-09-01 14:00] VITALS: BP 128/68; PULSE 88; RESP 18; TEMP 36.9; O2SAT 99
[2024-09-01 14:01] LABS: Alanine Aminotransferase 25 U/L (0-40); Albumin Level 2.7 g/dL (3.5-5.0); Alkaline Phosphatase 276 U/L (39-117); Anion Gap 15 (12-20); Aspartate Amino Transferase 184 U/L (5-37); Bilirubin Total 4.9 mg/dL (0.0-1.0); Blood Urea Nitrogen 5 mg/dL (9-16); Calcium 8.6 mg/dL (8.4-10.2); Carbon Dioxide 28 mmol/L (22-29); Chloride 97 mmol/L (96-108); Creatinine Clr Calc Pharmacy 227.8; Estimated Glomerular Filt Rate > 60; Glucose Random 101 mg/dL (60-115); Potassium 3.4 mmol/L (3.3-5.1); Sodium 137 mmol/L (135-145); Total Protein 7.1 g/dL (6.5-8.0)
[2024-09-01] MEDS: 0.9 % Sodium Chloride 1,000 ML 999 ML IVCONT (15:02)
[2024-09-01] MEDS: iohexoL 350 MG/ML 100 ML INFUS..BTL IV (15:47)
[2024-09-01 17:34] VITALS: BP 154/94; PULSE 88; RESP 16; TEMP 36.8; O2SAT 99
[2024-09-01 17:46] VITALS: BP 154/94; PULSE 88; RESP 16; TEMP 36.8; O2SAT 99
[2024-09-01 19:11] LABS: Ferritin 1115 ng/mL (20-250)
[2024-09-03 15:52] LABS: LDL Cholesterol Direct 60 mg/dL (<100)
== END 2024-09-01 17:47 | disposition home or self-care (01) ==
PROVIDERS: Emergency Medicine; Emergency Provider Emergency Medicine Emergency Medical Services
DX: S09.90XA Unspecified injury of head, initial encounter (principal); W18.30XA Fall on same level, unspecified, initial encounter; R79.89 Other specified abnormal findings of blood chemistry; D64.9 Anemia, unspecified; Y93.89 Activity, other specified; Y92.512 Supermarket, store or market as the place of occurrence of the external cause; Y99.9 Unspecified external cause status; Z79.899 Other long term (current) drug therapy
CPT/HCPCS: 36415; 70450; 71045; 72125; 74177; 80053; 80307; 81003; 82728; 83721; 84484; 85025; 93005; 96360; 99284; 99285; Q9967

== ENCOUNTER → 2024-09-01 12:46 | Outpatient (BNV) | payer BC, SELFPAY | PROVIDERS: Emergency Provider Emergency Medicine Emergency Medical Services; Visit Provider Internal Medicine Cardiovascular Disease | DX: R94.31 Abnormal electrocardiogram [ECG] [EKG] (principal); W19.XXXA Unspecified fall, initial encounter | CPT/HCPCS: 93010 ==

== ENCOUNTER → 2024-09-01 12:46 | Outpatient (BNV) | payer BC, SELFPAY | PROVIDERS: Emergency Provider Emergency Medicine; Visit Provider Radiology Diagnostic Radiology | DX: R18.8 Other ascites (principal); S19.9XXA Unspecified injury of neck, initial encounter; S09.90XA Unspecified injury of head, initial encounter; R07.9 Chest pain, unspecified | CPT/HCPCS: 70450; 71045; 72125; 74177 ==